=== PATIENT | male | born 1995 | race American Indian/Alaskan Native ===

== ENCOUNTER 2021-10-03 15:50 | Emergency (ER) | payer SELFPAY ==
[2021-10-03 16:05] VITALS: BP 132/88
--- NOTE | 2021-10-03 16:56 | Emergency Department Report ---
ED General Adult HPI - General Chief complaint: Hyperglycemia Stated complaint: HIGH SUGAR LEVEL PUI?: No Time Seen by Provider: 10/03/21 16:46 Source: patient Mode of arrival: Ambulatory Limitations: No Limitations - History of Present Illness Initial comments: CC: glucometer reading high HPI: This is a 26 yo male with BMI 44 who presents with elevated blood sugar readings at home. His friend's glucometer has read between 300 to "high". He has had frequent urination. Otherwise, he is asymptomatic. Father developed wei betes in his 20s. He denies any other symptoms. He denies fever, sore throat, chest pain, abdominal pain, blurry vision -: Gradual, week(s) (1 week) Severity scale (0 -10): 0 Associated Symptoms: denies other symptoms Treatments Prior to Arrival: none - Related Data Allergies Allergy/AdvReac Type Severity Reaction Status Date / Time No Known Allergies Allergy Verified 10/03/21 16:04 ED Review of Systems ROS: Stated complaint: HIGH SUGAR LEVEL Other details as noted in HPI Comment: All other systems reviewed and negative Constitutional: denies: chills, fever, malaise Respiratory: denies: cough, shortness of breath Gastrointestinal: denies: abdominal pain, nausea, vomiting Genitourinary: frequency. denies: dysuria, hematuria, discharge, testicular pain, testicular mass Neurological: denies: headache ED Past Medical Hx - Past Medical History Previous Medical History?: No - Family History Family history: diabetes - Social History Smoking Status: Never Smoker Substance Use Type: None ED Physical Exam - General Limitations: No Limitations General appearance: alert, in no apparent distress, other (Well-appearing nontoxic) - Head Head exam: Present: atraumatic, normocephalic, normal inspection - Eye Eye exam: Present: normal appearance - ENT ENT exam: Present: mucous membranes moist - Neck Neck exam: Present: normal inspection, full ROM - Respiratory Respiratory exam: Present: normal lung sounds bilaterally. Absent: respiratory distress, wheezes, rales, rhonchi - Cardiovascular Cardiovascular Exam: Present: regular rate, normal rhythm, normal heart sounds. Absent: systolic murmur, diastolic murmur, rubs, gallop - GI/Abdominal GI/Abdominal exam: Present: soft, normal bowel sounds. Absent: distended, te nderness, guarding, rebound - Rectal Rectal exam: Present: deferred - Extremities Exam Extremities exam: Present: normal inspection - Back Exam Back exam: Present: normal inspection - Neurological Exam Neurological exam: Present: alert, oriented X3 - Psychiatric Psychiatric exam: Present: normal affect, normal mood - Skin Skin exam: Present: warm, dry, intact, normal color. Absent: rash ED Course Vital Signs 10/03/21 16:04 Temperature 98 F Pulse Rate 83 Respiratory 14 Rate Blood Pressure 132/88 [Left] O2 Sat by Pulse 97 Oximetry ED Medical Decision Making - Medical Decision Making Prediabetes in the setting of severe obesity: Patient was given lifestyle modification instructions. Accu-Chek 178. Recommended taking only fasting blood sugar readings. I referred him to outpatient medicine physician. Critical care attestation.: If time is entered above; I have spent that time in minutes in the direct care of this critically ill patient, excluding procedure time. ED Disposition Clinical Impression: Prediabetes Disposition: HOME / SELF CARE / HOMELESS Is pt being admited?: No Does the pt Need Aspirin: No Condition: Stable Instructions: Prediabetes Eating Plan, Metabolic Syndrome, Prediabetes Referrals: FERNANDO CARDONA MD [Staff Physician] - 3-5 Days
== END 2021-10-03 17:20 | disposition home or self-care (01) ==
LOC: ED 15:50
DX: R73.03 Prediabetes (principal)
CPT/HCPCS: 82962; 99282

== ENCOUNTER 2021-10-20 18:11 | Emergency (ER) | payer SELFPAY ==
[2021-10-20] MEDS ORDERED: ACETAMINOPHEN 500 MG TAB PO ONE (19:53)
[2021-10-20] MEDS ORDERED: diphenhydrAMINE 50 MG/ML VIAL IV ONE (23:23)
[2021-10-20] MEDS ORDERED: FAMOTIDINE 20 MG/2 ML INJ IV ONE (23:23)
[2021-10-20] MEDS ORDERED: dexAMETHasone 20 MG/5 ML VIAL IV ONE (23:23)
[2021-10-20 23:39] LABS: Basophils # (Auto) 0.1 K/mm3 (0.0-0.1); Eosinophils % (Auto) 0.1 % (0.0-4.3); Hematocrit 48.8 % (35.5-45.6); Hemoglobin 15.8 gm/dl (11.8-15.2); Lymphocytes # (Auto) 1.2 K/mm3 (1.2-5.4); Lymphocytes % (Auto) 20.3 % (13.4-35.0); Mean Corpuscular HGB Conc 32 % (32-34); Mean Corpuscular Volume 87 fl (84-94); Monocytes % (Auto) 15.7 % (0.0-7.3); Platelet Count 333 K/mm3 (140-440); Red Blood Count 5.64 M/mm3 (3.65-5.03); Red Cell Distribution Width 13.7 % (13.2-15.2)
--- NOTE | 2021-10-21 00:09 | XRay Report ---
CHEST 1 VIEW 10/20/2021 11:29 PM INDICATION / CLINICAL INFORMATION: cough. COMPARISON: None available. FINDINGS: SUPPORT DEVICES: None. HEART / MEDIASTINUM: No significant abnormality. LUNGS / PLEURA: No significant pulmonary or pleural abnormality. No pneumothorax. ADDITIONAL FINDINGS: No significant additional findings. IMPRESSION: 1. No acute findings. Signer Name: John Neville DO Signed: 10/21/2021 12:05 AM Workstation Name: [id number]
[2021-10-21 00:24] LABS: Alanine Aminotransferase 19 units/L (7-56); Albumin 4.6 g/dL (3.9-5); BUN/Creatinine Ratio 9; Blood Urea Nitrogen 7 mg/dL (9-20); Hemolysis Index 8
--- NOTE | 2021-10-21 01:27 | Emergency Department Report ---
ED General Adult HPI - General Chief complaint: Hyperglycemia Stated complaint: SKIN RASH ELEVATED SUGAR Source: patient Mode of arrival: Ambulatory Limitations: No Limitations - History of Present Illness Initial comments: Patient is a 26-year-old -[place]ron[place] male with a history of morbid obesity and owf-qwegpss-znxpnapig diabetes who presented to the ED with complaint of acute onset persistent diffuse body aches and pains, generalized weakness, fever and chills for the last 5 days. Patient also complains of persistent intermittent diffuse itchy erythematous maculopapular urticarial rashes for over 3 months. Patient states that the etiology of the rashes has not been an established and also admits that he has also not been evaluated for the same. Patient states that he felt as if his blood sugar was elevated although he admits that he does not take any medication for diabetes. Patient denies dizziness, syncope, chest pain, shortness of breath, nausea and vomiting or diarrhea, abdominal pain, dysuria, urine frequency and urgency or testicular pain. MD Complaint: cough, nasal congestion; itchy erythematous rashes, weakness -: Sudden, days(s) (4) Location: head, chest Radiation: non-radiation Severity scale (0 -10): 3 Quality: aching, dull Consistency: intermittent Improves with: none Worsens with: none Associated Symptoms: denies other symptoms, cough, fever/chills, headaches, loss of appetite, malaise, rash (Diffuse itchy erythematous maculopapular rashes). denies: confusion, chest pain, diaphoresis, nausea/vomiting, seizure, shortness of breath, syncope, weakness Treatments Prior to Arrival: none - Related Data Previous Rx's Medication Instructions Recorded Last Taken Type Cetirizine HCl [Zyrtec 10mg tab] 10 mg PO DAILY #30 tablet 10/21/21 Unknown Rx Famotidine [Pepcid] 20 mg PO BID #30 tablet 10/21/21 Unknown Rx Ibuprofen [Motrin] 800 mg PO Q8HR PRN #30 tablet 10/21/21 Unknown Rx diphenhydrAMINE [Benadryl CAP] 25 mg PO Q6HR PRN #40 capsule 10/21/21 Unknown Rx predniSONE [Deltasone] 40 mg PO QDAY #10 tab 10/21/21 Unknown Rx Allergies Allergy/AdvReac Type Severity Reaction Status Date / Time No Known Allergies Allergy Verified 10/03/21 16:04 ED Review of Systems ROS: Stated complaint: SKIN RASH ELEVATED SUGAR Other details as noted in HPI Constitutional: chills, fever, malaise Eyes: denies: eye pain, eye discharge, vision change ENT: congestion. denies: ear pain, throat pain Respiratory: cough. denies: shortness of breath, wheezing Cardiovascular: denies: chest pain, palpitations Endocrine: no symptoms reported Gastrointestinal: denies: abdominal pain, nausea, vomiting, diarrhea Genitourinary: denies: urgency, dysuria Musculoskeletal: denies: back pain, joint swelling, arthralgia Skin: rash (Diffuse itchy erythematous maculopapular urticarial rashes), change in color, pruritus. denies: lesions, change in hair/nails Neurological: headache. denies: weakness, paresthesias Psychiatric: denies: anxiety, depression Hematological/Lymphatic: denies: easy bleeding, easy bruising ED Past Medical Hx - Past Medical History Previous Medical History?: No Hx Diabetes: Yes Additional medical history: Morbid obesity - Surgical History Past Surgical History?: No - Social History Smoking Status: Never Smoker Substance Use Type: None - Medications Home Medications: Home Medications Medication Instructions Recorded Confirmed Last Taken Type Cetirizine HCl [Zyrtec 10mg tab] 10 mg PO DAILY #30 tablet 10/21/21 Unknown Rx Famotidine [Pepcid] 20 mg PO BID #30 tablet 10/21/21 Unknown Rx Ibuprofen [Motrin] 800 mg PO Q8HR PRN #30 tablet 10/21/21 Unknown Rx diphenhydrAMINE [Benadryl CAP] 25 mg PO Q6HR PRN #40 capsule 10/21/21 Unknown Rx predniSONE [Deltasone] 40 mg PO QDAY #10 tab 10/21/21 Unknown Rx ED Physical Exam - General Limitations: No Limitations General appearance: alert, in no apparent distress, obese - Head Head exam: Present: atraumatic, normocephalic, normal inspection - Eye Eye exam: Present: normal appearance, PERRL, EOMI Pupils: Present: normal accommodation - ENT ENT exam: Present: normal orophraynx, mucous membranes moist, TM's normal bilaterally, normal external ear exam, other (Grossly congested nasal passage) - Neck Neck exam: Present: normal inspection, full ROM - Respiratory Respiratory exam: Present: normal lung sounds bilaterally. Absent: respiratory distress, wheezes, rales, rhonchi, chest wall tenderness - Cardiovascular Cardiovascular Exam: Present: normal rhythm, tachycardia, normal heart sounds. Absent: systolic murmur, diastolic murmur, rubs, gallop - GI/Abdominal GI/Abdominal exam: Present: soft, normal bowel sounds. Absent: tenderness, hyperactive bowel sounds, hypoactive bowel sounds, organomegaly, mass - Extremities Exam Extremities exam: Present: normal inspection, full ROM, normal capillary refill - Back Exam Back exam: Present: normal inspection, full ROM. Absent: tenderness, CVA tenderness (R), CVA tenderness (L), muscle spasm, paraspinal tenderness, vertebral tenderness - Neurological Exam Neurological exam: Present: alert, oriented X3, CN II-XII intact, normal gait, reflexes normal - Psychiatric Psychiatric exam: Present: normal affect, normal mood - Skin Skin exam: Present: warm, dry, intact, normal color. Absent: rash ED Course Vital Signs 10/20/21 10/21/21 19:42 01:47 Temperature 100.2 F H 98.8 F Pulse Rate 125 H 100 H Respiratory 18 16 Rate Blood Pressure 156/88 Blood Pressure 144/104 [Right] O2 Sat by Pulse 96 96 Oximetry ED Medical Decision Making - Lab Data Result diagrams: 10/20/21 23:29 10/20/21 23:29 - Radiology Data Radiology results: report reviewed, image reviewed [address] [address] XRay Report Signed Patient: WESLEY HERNÁNDEZ MR#: [id number] : 1995 Acct:[id number] Age/Sex: 26 / M ADM Date: 10/20/21 Loc: ED Attending Dr: Ordering Physician: CARLOS CHIN Date of Service: 10/20/21 Procedure(s): XR chest 1V ap Accession Number(s): [id number] cc: CARLOS CHIN Fluoro Time In Minutes: CHEST 1 VIEW 10/20/2021 11:29 PM INDICATION / CLINICAL INFORMATION: cough. COMPARISON: None available. FINDINGS: SUPPORT DEVICES: None. HEART / MEDIASTINUM: No significant abnormality. LUNGS / PLEURA: No significant pulmonary or pleural abnormality. No pneumothorax. ADDITIONAL FINDINGS: No significant additional findings. IMPRESSION: 1. No acute findings. Signer Name: John Neville DO Signed: 10/21/2021 12:05 AM Workstation Name: [id number] Transcribed By: EDMUND Dictated By: JOHN NEVILLE DO Electronically Authenticated By: JOHN NEVILLE DO Signed Date/Time: 10/21/214 DD/ TD/TT: Print Cancel - Medical Decision Making This is a 26-year-old -[place]ron[place] male with a history of morbid obesity and sek-qmutdvj-tqpiqxsqd diabetes who presented to the ED with complaint of acute onset persistent diffuse body aches and pains, generalized weakness, fever and chills for the last 5 days. Patient also complains of persistent intermittent diffuse itchy erythematous maculopapular urticarial rashes for over 3 months. Patient states that the etiology of the rashes has not been an established and also admits that he has also not been evaluated for the same. Patient states that he felt as if his blood sugar was elevated although he admits that he does not take any medication for diabetes. In the ED, patient is alert and oriented x3 and is not in distress. Patient is however tachycardic and febrile in triage. Patient was treated for fever in the ED with Tylenol. Chest x-ray showed no acute cardiopulmonary abnormalities or pneumonitis. Lab test results showed hyperglycemia of 244 mg/dL and hyponatremia of 131 mmol/L. Patient was treated in the ED with normal saline 1 L IV bolus x1 and also given Tylenol. Patient also received Benadryl, Pepcid and Decadron for suspected acute allergic reaction. On reevaluation, patient felt better and will discharged home on medications. Tachycardia resolved and at the time of the patient discharge he was afebrile. Patient was advised to return to the ED immediately if symptoms get worse. - Differential Diagnosis Allergic reaction; URI; bronchitis; viral syndrome; pneumonia Critical care attestation.: If time is entered above; I have spent that time in minutes in the direct care of this critically ill patient, excluding procedure time. ED Disposition Clinical Impression: Fever and chills, Viral upper respiratory tract infection with cough, Acute u rticaria, Itching with irritation Hyperglycemia due to type 2 diabetes mellitus Qualifiers: Diabetes mellitus longterm insulin use: without continuous churn buttermaker use Qualified Code(s): E11.65 - Type 2 diabetes mellitus with hyperglycemia Acute bronchitis Qualifiers: Bronchitis organism: unspecified organism Qualified Code(s): J20.9 - Acute bronchitis, unspecified Acute allergic reaction Qualifiers: Encounter type: initial encounter Qualified Code(s): T78.40XA - Allergy, unspe cified, initial encounter Disposition: HOME / SELF CARE / HOMELESS Is pt being admited?: No Does the pt Need Aspirin: No Condition: Stable Instructions: Allergies, Adult, Iftm-vy-Jwet, Hyperglycemia, Oxbl-nc-Qrdh, Upper Respiratory Infection, Adult, Ucuy-kq-Uzkr, Type 2 Diabetes Mellitus, Self Care, Adult, Jllz-at-Teai, Hives, Wqpb-ut-Buaj, Fever, Adult, Znhz-jx-Nonf, Rash, Adult, Vymo-fs-Fpth, Diabetes Mellitus Type 2 in Adults (ED), Acute Bronchitis (ED) Additional Instructions: Your itchy rashes is likely due to acute allergic reaction to an unknown substance. If fever is likely viral following upper respiratory infection. Therefore take medication with food, drink plenty of fluids and follow-up with your primary care physician in 7 to 10 days for reevaluation. Return to the ED immediately if symptoms get worse. Prescriptions: diphenhydrAMINE [Benadryl CAP] 25 mg PO Q6HR PRN #40 capsule PRN Reason: Itching predniSONE [Deltasone] 40 mg PO QDAY #10 tab Ibuprofen [Motrin] 800 mg PO Q8HR PRN #30 tablet PRN Reason: PAIN OR FEVER Famotidine [Pepcid] 20 mg PO BID #30 tablet Cetirizine HCl [Zyrtec 10mg tab] 10 mg PO DAILY #30 tablet Referrals: [facility] [Provider Group] - 7-10 days Time of Disposition: 01:25 Print Language: MAURITANIAN
[2021-10-21 01:49] VITALS: BP 144/104
== END 2021-10-21 01:47 | disposition home or self-care (01) ==
LOC: ED 18:11
DX: T78.40XA Allergy, unspecified, initial encounter (principal); E11.65 Type 2 diabetes mellitus with hyperglycemia; J20.9 Acute bronchitis, unspecified; X58.XXXA Exposure to other specified factors, initial encounter; Z79.899 Other long term (current) drug therapy
CPT/HCPCS: 36415; 71045; 80053; 82962; 85025; 96374; 96375; 99283; J1100; J1200; J3490